=== PATIENT | female | born 1940 | race Caucasian/White ===

== ENCOUNTER 2018-08-21 08:34 | Emergency (ER) | payer MEDICARE ==
[~2018-08-21] VITALS: Ht 157.5 cm; Wt 113.4 kg
[2018-08-21 08:34] VITALS: BP 0/0
--- NOTE | 2018-08-21 09:26 | PHYS DOC ---
Adult General Chief Complaint Chief Complaint: CPR/FULL ARREST HPI HPI 77-year-old female arrives via EMS as a CODE BLUE. The patient was found down outside of her apartment this morning. EMS arrived about 0800. Police had started CPR and paramedics took over. They were able to intubate the patient and continued CPR. They found her skin to be very cold even though she was warmly dressed. When she was initially hooked to the monitor, they thought she might have been in V. fib but were unsure if this was just artifact. She did get 1 shock. She was in asystole from that point forward. They gave 4 rounds of epinephrine in the field. There was not a change in condition at any time. She was found to have lost bowel and bladder. Her skin was very cold to the touch as the patient was outside in the weather. They did not take a temperature. The patient's initial collapse was not observed. A neighbor states they heard a loud noise as early as 0530. Review of Systems Review of Systems Unable to Perform due to CODE BLUE. Physical Exam Physical Exam Constitutional: Well developed, well nourished, severe distress, unresponsive. [ ] HENT: Normocephalic, atraumatic, bilateral external ears normal, intubated [] Eyes: pupils fixed and dilated [] Neck: Normal range of motion[] Cardiovascular: asystole[] Lungs & Thorax: Coarse breath sounds bilaterally with manual ventilation[] Abdomen: soft. [] Skin: Cold, dry, no erythema, no rash. [] Back: [] Skin: cyanosis, no clubbing, small abrasions on posterior distal fingers right hand [] Neurologic: Unresponsive[] Psychologic: Unresponsive. [] EKG EKG [] Radiology/Procedures Radiology/Procedures [] Course & Med Decision Making Course & Med Decision Making Pertinent Labs and Imaging studies reviewed. (See chart for details) When the patient arrived we took over CPR. There was quite a bit of fluid in the ET tube. We suctioned it several times. She was bagging. Easily. There was breath sounds on both sides with mechanical ventilation. We performed 3 rounds of epinephrine with continuous compressions. At no time was there change in the patient's condition. Each pulse check revealed no pulse and asystole on the monitor. Once a cord temperature was obtained it was 83F. This demonstrates prolonged exposure to the cold after her heart stopped. At that point or efforts were deemed to be futile. I called time of at 0844. The patient's total CPR time in the field in the hospital was 44 minutes. 20 minutes of critical care time was spent on this patient exclusive of any other procedures. [] Dragon Disclaimer Dragon Disclaimer This electronic medical record was generated, in whole or in part, using a voice recognition dictation system. BEN HOPKINS DO Aug 21, 2018 09:26
[2018-08-21] MEDS ORDERED: LISI-334 PO (10:42)
[2018-08-21] MEDS ORDERED: GLIP5TAB22 PO (10:47)
[2018-08-21] MEDS ORDERED: OXYB5TAB7 PO (10:47)
[2018-08-21] MEDS ORDERED: ATOR40TA59 PO (10:47)
[2018-08-21] MEDS ORDERED: METO-247 PO (10:47)
[2018-08-21] MEDS ORDERED: EPINEPHrine SYRINGE 1 MG/10 ML SYRINGE ONE (12:00)
[2018-08-21] MEDS ORDERED: ONDANSETRON PF 4 MG/2 ML VIAL. ONE (12:01)
== END 2018-08-21 08:44 | disposition expired ==
LOC: ER 08:34
DX: I46.9 Cardiac arrest, cause unspecified (principal)
CPT/HCPCS: 92950; 99285; J0171